=== PATIENT | male | born 1990 | race Caucasian/White ===

== ENCOUNTER 2019-11-14 17:29 | Emergency (ER) | payer OTHER, MEDICAID ==
[~2019-11-14] VITALS: Ht 182.9 cm; Wt 99.8 kg
[2019-11-14] MEDS ORDERED: BUTALB-APAP-CA1 EACH PO (19:00)
[2019-11-14] MEDS ORDERED: IBUPROFEN 800800 M1 PO (19:00)
[2019-11-14] MEDS ORDERED: FLEXERIL PO (19:00)
[2019-11-14 19:12] VITALS: BP 142/79
== END 2019-11-14 19:12 | disposition home or self-care (01) ==
LOC: M.ERS 17:29
DX: S06.0X0A Concussion without loss of consciousness, initial encounter (principal); S16.1XXA Strain of muscle, fascia and tendon at neck level, initial encounter; S29.012A Strain of muscle and tendon of back wall of thorax, initial encounter; M25.511 Pain in right shoulder; Z90.49 Acquired absence of other specified parts of digestive tract; W13.2XXA Fall from, out of or through roof, initial encounter; Y93.89 Activity, other specified; Y92.89 Other specified places as the place of occurrence of the external cause; Y99.8 Other external cause status

== ENCOUNTER 2020-10-18 21:42 | Emergency (ER) | payer OTHER, MEDICAID ==
[~2020-10-18] VITALS: Ht 182.9 cm; Wt 95.3 kg
[~2020-10-18 21:42] MED LIST: BUTALB-APAP-CA1 EACH PO; FLEXERIL PO; IBUPROFEN 800800 M1 PO
[2020-10-18] MEDS ORDERED: [UNRECOGNIZED DRUG - CODE] IM (21:49)
[2020-10-18] MEDS ORDERED: PREDNISONE 20 M20 MG PO (21:50)
[2020-10-18] MEDS ORDERED: TORADOL 10 MG T10 MG PO (23:19)
[2020-10-18] MEDS ORDERED: NEURONTIN300 MG PO (23:19)
[2020-10-18 23:46] VITALS: BP 144/79
== END 2020-10-18 23:46 | disposition home or self-care (01) ==
LOC: M.ERS 21:42
DX: G35 Multiple sclerosis (principal); R20.2 Paresthesia of skin; Z90.49 Acquired absence of other specified parts of digestive tract